=== PATIENT | male | born 1955 | race Caucasian/White ===

== ENCOUNTER → 2016-04-23 | Outpatient (CLI) | payer MEDICAID ==
--- NOTE | 2016-04-23 14:06 | US ---
Complete Abdominal Ultrasound INDICATION: Elevated LFTs. No priors for comparison. TECHNIQUE: Complete abdominal ultrasound is performed. FINDINGS: Pancreas is visualized to a limited extent. Abdominal aorta is within normal limits. Liver measures 13 cm and is diffusely heterogeneous with slightly irregular hepatic borders. No obvious int rinsic hepatic mass. Main portal vein is patent. There are mobile stones in the gallbladder, largest one seen at 1 x 0.6 c m. The gallbladder wall is 2 mm. Common duct is 4 mm. Sonographic Villegas sign is negative. No pericho lecystic fluid. The right kidney measures 11.6 x 5.4 x 5.6 cm. The left kidney measures 11.4 x 5.5 x 6.1 cm. Both are sonographically normal with normal cortices. No hydronephrosis. No solid or cystic mass. Spleen is normal 11.2 cm. No ascites or pleural effusion. IMPRESSION: Coarse and heterogeneous liver with irregular edge suggestive of cirrhosis. Otherwise nor mal complete abdominal ultrasound.
== END ==
LOC: FIMAGING 07:59
PROVIDERS: ATTEND Internal Medicine Hematology & Oncology
DX: R94.5 Abnormal results of liver function studies (principal)

== ENCOUNTER → 2017-06-10 | Outpatient (CLI) | payer MEDICAID ==
[~2017-06-10] MED LIST: IOPAMIDOL (ISOVUE-300) 100 ML BTL ONE
== END ==
LOC: FIMAGING 12:43
PROVIDERS: ATTEND Family Medicine
DX: R59.9 Enlarged lymph nodes, unspecified (principal); J39.2 Other diseases of pharynx; I65.29 Occlusion and stenosis of unspecified carotid artery
CPT/HCPCS: Q9967

== ENCOUNTER 2017-07-21 05:29 | Day surgery (SDC) | payer MEDICAID ==
[2017-07-21] MEDS ORDERED: LIDOCAINE 1% 2 ML INJ ID PRN (05:52)
[2017-07-21] MEDS ORDERED: LR 1,000 ML IV ONE (05:52)
--- NOTE | 2017-07-21 06:23 | PDANEPAE ---
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 ANE Past Medical History - Cardiovascular History Hx Hypertension: Yes Hx Arrhythmias: No Hx Chest Pain: No Hx Coronary Artery / Peripheral Vascular Disease: No Hx CHF / Valvular Disease: No Hx Palpitations: No Cardiovascular History Comment: hypercholesterolemia - Pulmonary History Hx COPD: No Hx Asthma/Reactive Airway Disease: No Hx Recent Upper Respiratory Infection: No Hx Oxygen in Use at Home: No Hx Sleep Apnea: No Sleep Apnea Screening Result - Last Documented: Positive - Neurologic History Hx Cerebrovascular Accident: No Hx Seizures: No Hx Dementia: No - Endocrine History Hx Diabetes: No Hypothyroid: No Obesity: no - Renal History Hx Renal Disorders: No - Liver History Hx Hepatic Disorders: No - Neurological & Psychiatric Hx Hx Neurological and Psychiatric Disorders: No - Cancer History Hx Cancer: Yes Cancer History Comment: oropharyngeal cancer, invasive - Congenital Disorder History Hx Congenital Disorders: No - GI History GERD: no Hx Gastrointestinal Disorders: No Gastrointestinal History Comment: anticipating feeding issues during chemo, so will place PEG today - Other Health History Other Health History: none - Chronic Pain History Chronic Pain: No - Surgical History Prior Surgeries: none ANE Review of Systems Review of Systems: - Exercise capacity METS (RN): 4 METS - Systems EENMT: Reports: nose congestion (chronic AM post nasal drip - pt states this usually clears with morning hot shower) Hematologic/Lymphatic: Reports: other (chronic thrombocytopenia - no easy bruising or gum bleeding) ANE Patient History - Allergies Allergies/Adverse Reactions: No Known Allergies Allergy (Verified 07/20/17 17:18) - Home Medications Home Medications: Amlodipine Besylate 07/20/17 [Last Taken 07/20/17 12:00] Aspirin 81mg (*) 07/20/17 [Last Taken 07/20/17 12:00] Atorvastatin Calcium 07/20/17 [Last Taken 07/20/17 12:00] Lisinopril 07/20/17 [Last Taken 07/20/17 12:00] Metoprolol Succinate 07/20/17 [Last Taken 07/20/17 12:00] Multivitamins 07/20/17 [Last Taken 07/20/17 12:00] - NPO status NPO Since - Liquids (Date): 07/20/17 NPO Since - Liquids (Time): 22:30 NPO Since - Solids (Date): 07/20/17 NPO Since - Solids (Time): 22:00 - Anes Hx Hx Anesthesia Complications (with details): pt has never had anesthesia before - Smoking Hx Smoking Status: Former smoker - Alcohol Use Alcohol Use: Other (h/o alcoholism by medical record, pt states currently about 6 drinks/week) - Family Anes Hx Family Anes Hx: neg - N/A Family Hx Anesthesia Complications: none ANE Labs/Vital Signs - Labs - CBC Platelet Count: 95 - Labs - BMP Sodium: 144 Potassium: 4.5 Creatinine: 0.5 - Vital Signs Blood Pressure: 122/77 Heart Rate: 73 Respiratory Rate: 18 O2 Sat (%): 95 Height: 177.8 cm Weight: 83.915 kg ANE Physical Exam - Airway Neck exam: FROM Mallampati Score: Class 3 Mouth exam: poor dentition - Pulmonary Pulmonary: expiratory wheeze, rhonchi - Cardiovascular Cardiovascular: regular rate and rhythym - ASA Status ASA Status: III ANE Anesthesia Plan Anesthesia Plan: GA w LMA
[2017-07-21] MEDS ORDERED: MIDAZOLAM 2 MG/2 ML VIAL IVP ONE (06:52)
[2017-07-21] MEDS ORDERED: ceFAZolin 2 GM/SWFI 2 GM/20 ML SYR IVP ONE (06:53)
[2017-07-21] MEDS ORDERED: IPRATROPIUM/ALBUTEROL 3 ML DEYVIAL IH ONE (06:53)
--- NOTE | 2017-07-21 07:00 | PDGENHP ---
History and Physical - Chief Complaint oropharyngeal cancer - History of Present Illness Silvano is a 62yoM with probably ENT cancer who was referred by Dr Rosario for consult for port placement and gastrostomy tube placement. Silvano first noticed a left neck mass [address] of the neck with IV contrast does not show any focal mass but does reveal left cervical adenopathy, consistent with metastases. The lymph node was biopsied, and the results are pending. A tonsilar biopsy was attempted but was unsuccessful. He chewed tobacco in high school and started smoking in college. He still smokes 4-5 cigarettes a day. History Information - Allergies/Home Medication List Allergies/Adverse Reactions: No Known Allergies Allergy (Verified 07/20/17 17:18) Home Medications: Amlodipine Besylate 07/20/17 [Last Taken 07/20/17 12:00] Aspirin 81mg (*) 07/20/17 [Last Taken 07/20/17 12:00] Atorvastatin Calcium 07/20/17 [Last Taken 07/20/17 12:00] Lisinopril 07/20/17 [Last Taken 07/20/17 12:00] Metoprolol Succinate 07/20/17 [Last Taken 07/20/17 12:00] Multivitamins 07/20/17 [Last Taken 07/20/17 12:00] I have personally reviewed and updated: medical history, social history, surgical history - Past Medical History hypertension, hyperlipidemia - Surgical History Reports: no pertinent surgical hx - Social History Smoking Status: Former smoker Alcohol Use: Other (h/o alcoholism by medical record, pt states currently about 6 drinks/week) Review of Systems Review of Systems: ROS: 10pt was reviewed & negative except for what was stated in HPI & below Physical Exam Physical Exam: General: Pleasant, well-nourished and well-groomed Eyes: Pupils equal and round, no scleral icterus HENT: Normocephalic, no gross hearing deficits, moist mucous membranes. Left cervical lymphadenopathy. Respiratory: Clear to auscultation bilaterally, no increased work of breathing Cardiac: Regular rate, regular rhythm, no peripheral edema Abdomen: Soft, non-tender, bowel sounds present. Musculoskeletal: Normal gait and normal nails Integumentary: Skin warm and dry rash on abdomen Neurologic: Awake, alert, motor grossly intact Pscyhiatric: Normal mood and affect Temp Pulse Resp BP Pulse Ox 37.4 C 73 18 122/77 H 95 07/21/17 06:32 07/21/17 06:55 07/21/17 06:55 07/21/17 06:55 07/21/17 06:55 Assessment & Plan Assessment: oropharyngeal cancer PEG/Port risks and benefits discussed
[2017-07-21] MEDS ORDERED: BUPIVACAINE 0.5% 30 ML SDV ONE (07:09)
[2017-07-21] MEDS ORDERED: fentaNYL 100 MCG/2 ML INJ ONE ×2 (07:10)
[2017-07-21] MEDS ORDERED: DEXAMETHASONE 4 MG/ML VIAL ONE (07:10)
[2017-07-21] MEDS ORDERED: PROPOFOL/EMULSION 500 MG/50 ML BOTTLE IV ONE (07:10)
[2017-07-21] MEDS ORDERED: LIDOCAINE 2% 5 ML SDV ONE (07:10)
[2017-07-21] MEDS ORDERED: epHEDrine SULFATE 10 MG/ML SYR ONE (07:57)
[2017-07-21] MEDS ORDERED: KETOROLAC 30 MG/1 ML SDV ONE (08:13)
--- NOTE | 2017-07-21 08:22 | POSTOPPROG ---
Post Op Note Date of Operation: 07/21/17 Surgeon: Madhavi Galvan Anesthesiologist: luis Anesthesia: GET(General Endotracheal) Pre-op Diagnosis: oropharyngeal cancer Post-op Diagnosis: same Indication: 62 yo with oropharyngeal cancer Procedure: PORT and PEG Findings: Tip at SVC Inf/Abcess present in the surg proc area at time of surgery?: No Depth: Superfical (Skin SQ) EBL: Minimal Specimen(s): none
[2017-07-21] MEDS ORDERED: ALBUTEROL 3 ML DEYVIAL IH PRN (08:37)
[2017-07-21] MEDS ORDERED: fentaNYL 100 MCG/2 ML INJ IVP PRN (08:37)
[2017-07-21] MEDS ORDERED: ACETAMINOPHEN 500 MG TAB PO PRN (08:37)
[2017-07-21] MEDS ORDERED: LR 500 ML IV PRN (08:37)
[2017-07-21] MEDS ORDERED: HYDROCODONE/APAP 5/325 TAB PO PRN (08:37)
[2017-07-21] MEDS ORDERED: ONDANSETRON 4 MG/2 ML VIAL IVP PRN (08:37)
[2017-07-21] MEDS ORDERED: NALOXONE HCL 0.4 MG/ML INJ IVP PRN (08:37)
[2017-07-21] MEDS ORDERED: DIAZEPAM 5 MG/ML 1 ML SYR IVP PRN (08:37)
--- NOTE | 2017-07-21 08:39 | POSTANESTH ---
Post Anesthetic Evaluation Cardiovascular Status: Normal, Stable Respiratory Status: Normal, Stable Level of Consciousness/Mental Status: Can Participate in Eval, Mildly Sleepy, Arousable Pain Control: Adequate, Prn Tx Ordered Nausea/Vomiting Control: Adequate, Prn Tx Ordered Complications Possibly Related to Anesthesia: None Noted
[2017-07-21 11:46] VITALS: BP 143/93
--- NOTE | 2017-07-21 14:06 | GOP ---
[f rep st] OPERATIVE REPORT DATE OF OPERATION: 07/21/2017 SURGEON: Bossman Thurman MD CO-SURGEON: Madhavi Galvan MD ANESTHESIA: General endotracheal. ANESTHESIOLOGIST: Kristin Castillo MD. PREOPERATIVE DIAGNOSIS: Oropharyngeal cancer. POSTOPERATIVE DIAGNOSIS: Oropharyngeal cancer. PROCEDURE PERFORMED: Upper endoscopy for percutaneous endoscopic gastrostomy tube placement. FINDINGS: Successful upper endoscopy and good placement of PEG tube. SPECIMENS: None. ESTIMATED BLOOD LOSS: 5 cc. DESCRIPTION OF PROCEDURE: Patient was greeted in the preoperative suite. Risks , benefits, alternatives were discussed. He was then brought back to the operative suite, placed on the OR table in supine position. After all anesthesia machines including SCDs were on and functioning, [facility] time-out was performed. After successful induction of general anesthesia, the patient's abdomen was prepped and draped in typical sterile fashion. Please see separate dictation per Dr. Galvan for the abdominal portion of this procedure. I successfully inserted the endoscope via the patient's mouth, navigated past his oropharyngeal cancer through the esophagus and entered the stomach. I gently insufflated the stomach and identified the area of palpation transillumination, given the scope was poor. We successfully inserted the needle and subsequent guidewire into the patient's stomach without issue. The guidewire was then successfully brought out through the patient's mouth via a snare. It was attached to the PEG tube, which was then brought back through the patient's oropharynx and successfully tunneled through the patient's abdominal wall. I then repeated my upper endoscopy, which showed adequate placement of the patient's PEG tube within the stomach. A picture of this was taken and provided on the patient's chart. The endoscope was then withdrawn after suctioning all of the air out of the patient's stomach and esophagus. The procedure was then handed over to Dr. Galvan for the remainder. DRAINS: None. /[id number]/MODL MTDD
== END 2017-07-21 11:35 | disposition home or self-care (01) ==
LOC: FSGY 05:29
PROVIDERS: ATTEND Surgery
PROC: 0JH60XZ Insertion of Tunneled Vascular Access Device into Chest Subcutaneous Tissue and Fascia, Open Approach (ICD-10-PCS; principal; 2017-07-21 07:15)
PROC: 05HM33Z Insertion of Infusion Device into Right Internal Jugular Vein, Percutaneous Approach (ICD-10-PCS; principal; 2017-07-21 07:15)
PROC: 0DH63UZ Insertion of Feeding Device into Stomach, Percutaneous Approach (ICD-10-PCS; 2017-07-21 07:15)
DX: C10.9 Malignant neoplasm of oropharynx, unspecified (principal); F17.210 Nicotine dependence, cigarettes, uncomplicated; I10 Essential (primary) hypertension; E78.5 Hyperlipidemia, unspecified
CPT/HCPCS: 36561; 43246; 71045; 76001; B4087; C1788; J0690; J1100; J1642; J1885; J2250; J2704; J3010

== ENCOUNTER 2017-09-23 10:38 | Inpatient (IN) | payer MEDICAID ==
--- NOTE | 2017-09-23 12:25 | EDPHY ---
General - History Smoking Status: Current some day smoker Time Seen by Provider: 09/23/17 12:18 Narrative: CHIEF COMPLAINT: Abscess HISTORY OF PRESENT ILLNESS: Patient presents with complaints of abscess. He states this started on Tuesday morning. He thought it was similar to a previous episode when "I had 1 like this that popped on its own and went away,"which occurred several years ago. He says this has been steadily increasing size and is very painful. He thought he had some constipation, thus he took some stool softeners. He has had no blood in the stool. He has had no drainage from the abscess and has not attempted to do so. No painful urination. No nausea or vomiting. No chest pain shortness of breath NPO as of yesterday afternoon of all liquids and solids REVIEW OF SYSTEMS: Ten systems reviewed and are negative unless otherwise noted in the HPI PCP: Dr. Charlene Mendoza SPECIALISTS: Dr. Rosario PAST MEDICAL HISTORY: "tonsil and lymph node cancer" 2018. Chemotherapy in today days ago. Radiation therapy and did 15 days ago PAST SURGICAL HISTORY: No recent surgeries FAMILY HISTORY: Noncontributory EXAMINATION General Appearance: Alert, no distress. Appears ill but nontoxic Head: normocephalic, atraumatic Eyes: Pupils equal and round, no conjunctival pallor or injection ENT, Mouth: Mucous membranes dry. Airway patent Neck: Normal inspection, supple, non-tender Respiratory: Lungs are clear to auscultation Cardiovascular: Tachycardic rate. Regular rhythm. No murmur. Gastrointestinal: Abdomen is soft and nondistended. No tympany rigidity. Rectal: There is a palpable fluctuance and long linear line of abscess starting just anterior to the anal verge, tracking anteriorly to the leticia scrotal region. There is no crepitus or fluctuance. No gangrene. Digital rectal exam not performed due to severe pain. Neurological: A&O, nonfocal, normal gait Skin: Warm and dry. Extensive area of cellulitis to the leticia anal region, extending to a candidal dermatitis of the crura of both inguinal fold. Extremities: Nontender, no pedal edema Psychiatric: Mood and affect normal DIFFERENTIAL DIAGNOSES: Including but not limited to perianal abscess, perirectal abscess, karely's gangrene, cellulitis, abscess, sepsis MDM: 12:20 p.m. Suspected perianal versus perirectal abscess that is anterior to the transverse line. He also has some surrounding cellulitis and dermatitis of the inguinal fold. I do not appreciate any obvious evidence of gangrene or Karely's gangrene. The patient does meet SIRS criteria, thus blood cultures been obtained and lactic acid is currently being obtained. He is awake alert no acute distress. 12:35 p.m. Initial lactic acid is elevated 2.4. His white count is elevated 11.48, thus he does meet criteria for sepsis and we will hydrate appropriately. 12:40 p.m. Case discussed with the circulating RN with Dr. Thurman. We discussed the patient's history, exam. He will provide consultation emergency department shortly but is currently scrubbed into another case. I have ordered CT scan for better visualization of the area and due to possibility of perianal or perirectal abscess. 1:40 p.m. Notified by radiologist Dr. Monk. CT scan findings were discussed included perianal abscess, incidental note of ascending colon pneumatosis, cirrhosis. 1:[address] Thurman has evaluated the patient emergency department. He plans for surgical intervention of a large perianal abscess. He request medicine admit. Hospitalist has been paged. At this point he does meet criteria for severe sepsis but not septic shock. We are treating with MALIHA Michaels request of Dr. Thurman. The OR has been activated, and RN is currently providing report to the OR nurse. 2:30 p.m. Case discussed with hospitalist Dr. Jones. She will admit the patient to her service. I informed her of the severe sepsis without septic shock, source of infection and plan for immediate operative intervention. Repeat lactic acid will be obtained before the patient leaves this emergency department. 2:55 p.m. Repeat lactic acid is 2.3. The patient be taken to the OR shortly SUPERVISION: Patient was evaluated in conjunction with Dr. Zarco. We have both examined and evaluated the patient. (Konstantin Doll) - Diagnostics Imaging Results: Imaging Impressions Abdomen CT 09/23/17 12:36 Impression: 1. Perianal abscess containing fluid and gas. No extension into the peritoneal space. 2. Partially withdrawn gastrostomy tube balloon superficial to the rectus muscle in the mature tract. 3. Benign pneumatosis ascending colon. No pneumoperitoneum or acute intra- abdominal process. 4. Cirrhosis. No evidence of hepatoma. 5. Portal venous hypertension and splenomegaly. Patent portal vein. No ascites. 6. Cholelithiasis. Findings discussed with Emergency Department physician circulation assistant, Konstantin Doll PA-C on September 23, 2017 at 1345 hours. Chest X-Ray 09/23/17 12:57 Impression: Clear lungs. No pneumonia or effusion. Discussion: This patient was seen and examined by me. He presents with a perianal abscess that extends anteriorly to the scrotum. He is nontoxic-appearing, Cardiovascular regular tachycardia, chest is clear to auscultation. Rectal exam reveals a perianal abscess. He meets SIRS criteria. Initial lactate is 2.4. IV normal saline per the sepsis protocol initiated. Repeat lactate 2.3. Zosyn IV ordered. Seen by Dr. Thurman in ED, going directly to OR. (Lili Zarco) - Objective Vital Signs: Initial Vital Signs Temperature (C) 98.8 F 09/23/17 10:43 Heart Rate 142 H 09/23/17 10:43 Respiratory Rate 20 09/23/17 10:43 Blood Pressure 131/82 H 09/23/17 10:43 O2 Sat (%) 98 09/23/17 10:43 O2 Delivery Mode Nasal Cannula O2 (L/minute) 2 Allergies/Adverse Reactions: No Known Allergies Allergy (Verified 09/23/17 10:42) Home Medications: Medication Instructions Recorded NK [No Known Home Meds] 09/23/17 Laboratory Results: Laboratory Results 09/23/17 11:00 09/23/17 11:00 09/23/17 09/23/17 09/23/17 14:03 12:33 11:00 WBC RBC Hgb Hct MCV MCH MCHC RDW Plt Count MPV Neut % (Auto) Lymph % (Auto) [place] % (Auto) Eos % (Auto) Baso % (Auto) Nucleat RBC Rel Count Absolute Neuts (auto) Absolute Lymphs (auto) Absolute Monos (auto) Absolute Eos (auto) Absolute Basos (auto) Absolute Nucleated RBC Immature Gran % Immature Gran # Platelet Estimate Polychromasia Oval Macrocytes PT INR APTT VBG Lactic Acid 2.3 mmol/L H mmol/L (0.7-2.1) Sodium 135 mEq/L mEq/L (135-145) Potassium 2.9 mEq/L L mEq/L (3.3-5.0) Chloride 93 mEq/L L mEq/L (97-110) Carbon Dioxide 26 mEq/l mEq/l (22-31) Anion Gap 16 mEq/L mEq/L (8-16) BUN 12 mg/dL mg/dL (7-23) Creatinine 0.5 mg/dL L mg/dL (0.7-1.3) Estimated GFR > 60 Glucose 98 mg/dL mg/dL (70-100) POC Lactic Acid Sundar 2.4 mmol/L H mmol/L (0.7-2.1) Calcium 9.3 mg/dL mg/dL (8.5-10.4) Total Bilirubin 1.9 mg/dL H mg/dL (0.1-1.4) 09/23/17 09/23/17 11:00 11:00 WBC 11.48 10^3/uL H 10^3/uL (3.80-9.50) RBC 3.89 10^6/uL L 10^6/uL (4.40-6.38) Hgb 14.2 g/dL g/dL (13.7-17.5) Hct 41.0 % % (40.0-51.0) MCV 105.4 fL H fL (81.5-99.8) MCH 36.5 pg H pg (27.9-34.1) MCHC 34.6 g/dL g/dL (32.4-36.7) RDW 17.3 % H % (11.5-15.2) Plt Count 121 10^3/uL L 10^3/uL (150-400) MPV 10.4 fL fL (8.7-11.7) Neut % (Auto) 77.2 % H % (39.3-74.2) Lymph % (Auto) 11.1 % L % (15.0-45.0) [place] % (Auto) 10.6 % % (4.5-13.0) Eos % (Auto) 0.5 % L % (0.6-7.6) Baso % (Auto) 0.3 % % (0.3-1.7) Nucleat RBC Rel Count 0.0 % % (0.0-0.2) Absolute Neuts (auto) 8.87 10^3/uL H 10^3/uL (1.70-6.50) Absolute Lymphs (auto) 1.27 10^3/uL 10^3/uL (1.00-3.00) Absolute Monos (auto) 1.22 10^3/uL H 10^3/uL (0.30-0.80) Absolute Eos (auto) 0.06 10^3/uL 10^3/uL (0.03-0.40) Absolute Basos (auto) 0.03 10^3/uL 10^3/uL (0.02-0.10) Absolute Nucleated RBC 0.00 10^3/uL 10^3/uL (0-0.01) Immature Gran % 0.3 % % (0.0-1.1) Immature Gran # 0.03 10^3/uL 10^3/uL (0.00-0.10) Platelet Estimate DECREASED L (ADEQ) Polychromasia 1+ H Oval Macrocytes 1+ H PT 14.9 SEC SEC (12.0-15.0) INR 1.15 (0.83-1.16) APTT 27.8 SEC SEC (23.0-38.0) VBG Lactic Acid Sodium Potassium Chloride Carbon Dioxide Anion Gap BUN Creatinine Estimated GFR Glucose POC Lactic Acid Sundar Calcium Total Bilirubin Medications Given: Discontinued Medications Fentanyl (Sublimaze) 100 mcg IVP EDNOW ONE Stop: 09/23/17 12:42 Last Admin: 09/23/17 13:46 Dose: 50 mcg Sodium Chloride (Ns) 1,000 mls @ 0 mls/hr IV EDNOW ONE; Wide Open PRN Reason: Protocol Stop: 09/23/17 12:37 Last Admin: 09/23/17 13:33 Dose: 1,000 mls Sodium Chloride (Ns) 500 mls @ 0 mls/hr IV EDNOW ONE; Wide Open PRN Reason: Protocol Stop: 09/23/17 12:47 Last Admin: 09/23/17 13:34 Dose: 500 mls Sodium Chloride (Ns) 2,500 mls @ 5,000 mls/hr 30 ml/kg infuse over 30 min ( 2500 ml) IV EDNOW ONE PRN Reason: Protocol Stop: 09/23/17 14:08 Last Admin: 09/23/17 14:01 Dose: Not Given Ondansetron HCl (Zofran) 4 mg IVP EDNOW ONE Stop: 09/23/17 12:42 Last Admin: 09/23/17 13:35 Dose: Not Given Point of Care Test Results: Blood Gas/Lactic Acid-Venous 09/23/17 12:33 POC Lactic Acid Sundar 2.4 mmol/L H mmol/L (0.7-2.1) Departure - Departure Disposition: [facility] Inpatient Acute Clinical Impression: Severe sepsis, Perianal abscess Condition: Fair Referrals: Charlene Mendoza DO [Primary Care Provider] - As per Instructions
--- NOTE | 2017-09-23 12:29 | CPEKG ---
Heart Rate: 125 RR Interval: 480 P-R Interval: 140 QRSD Interval: 98 QT Interval: 332 QTC Interval: 479 P [place]: 63 QRS [place]: -63 T Wave [place]: 98 EKG Severity - ABNORMAL ECG - EKG Impression: SINUS TACHYCARDIA EKG Impression: LEFT ANTERIOR FASCICULAR BLOCK EKG Impression: NONSPECIFIC T ABNORMALITIES, LATERAL LEADS EKG Impression: BORDERLINE PROLONGED QT INTERVAL Electronically Signed By: Lili Zarco 23-Sep-2017 14:26:33
[2017-09-23 12:34] LABS: PLATELET COUNT 121 10^3/uL (150-400)
[2017-09-23] MEDS ORDERED: NS 1,000 ML IV ONE (12:36)
[2017-09-23 12:39] LABS: INR 1.15 (0.83-1.16); PROTIME(PATIENT) 14.9 SEC (12.0-15.0)
[2017-09-23] MEDS ORDERED: IOPAMIDOL (ISOVUE-300) 100 ML BTL ONE (12:41)
[2017-09-23] MEDS ORDERED: ONDANSETRON 4 MG/2 ML VIAL IVP ONE (12:41)
[2017-09-23] MEDS ORDERED: fentaNYL 100 MCG/2 ML INJ IVP ONE (12:41)
[2017-09-23] MEDS ORDERED: NS 500 ML IV ONE (12:46)
[2017-09-23] MEDS ORDERED: NS 2,500 ML IV ONE (13:39)
[2017-09-23] MEDS ORDERED: PIPERACILLIN/TAZO 4.5 GM/DEX 100 ML IV ONE (13:53)
[2017-09-23] MEDS ORDERED: POTASSIUM Cl (KCl) 50 ML IV ONE (14:00)
[2017-09-23] MEDS ORDERED: fentaNYL 250 MCG/5 ML INJ ONE (14:21)
[2017-09-23] MEDS ORDERED: PROPOFOL 200 MG/20 ML VIAL ONE (14:22)
[2017-09-23] MEDS ORDERED: SUCCINYLCHOLINE CHLORIDE 200 MG/10 ML SYR IVP ONE (14:24)
[2017-09-23] MEDS ORDERED: LIDOCAINE 2% 5 ML SDV ONE (14:25)
[2017-09-23] MEDS ORDERED: BUPIVACAINE/EPI 0.5% 30 ML SDV ONE (14:32)
[2017-09-23] MEDS ORDERED: LR 1,000 ML IV ONE (14:36)
[2017-09-23] MEDS ORDERED: MIDAZOLAM 2 MG/2 ML VIAL IVP ONE (14:37)
--- NOTE | 2017-09-23 14:37 | PDANEPAE ---
ANE History of Present Illness perirectal abscess ANE Past Medical History - Cardiovascular History Hx Hypertension: Yes Hx Arrhythmias: No Hx Chest Pain: No Hx Coronary Artery / Peripheral Vascular Disease: No Hx CHF / Valvular Disease: No Hx Palpitations: No Cardiovascular History Comment: hypercholesterolemia - Pulmonary History Hx COPD: No Hx Asthma/Reactive Airway Disease: No Hx Recent Upper Respiratory Infection: No Hx Oxygen in Use at Home: No Hx Sleep Apnea: No - Neurologic History Hx Cerebrovascular Accident: No Hx Seizures: No Hx Dementia: No - Endocrine History Hx Diabetes: No Obesity: no - Renal History Hx Renal Disorders: No - Liver History Hx Hepatic Disorders: No - Neurological & Psychiatric Hx Hx Neurological and Psychiatric Disorders: No - Cancer History Hx Cancer: Yes Cancer History Comment: oropharyngeal cancer, invasive - Congenital Disorder History Hx Congenital Disorders: No - GI History Hx Gastrointestinal Disorders: No Gastrointestinal History Comment: anticipating feeding issues during chemo, so will place PEG today - Other Health History Other Health History: none - Chronic Pain History Chronic Pain: No - Surgical History Prior Surgeries: none ANE Review of Systems Review of systems is: negative Review of Systems: - Exercise capacity Exercise capacity: >=4 METS ANE Patient History - Allergies Allergies/Adverse Reactions: No Known Allergies Allergy (Verified 09/23/17 10:42) - Home Medications Home medications: home medication list seen and reviewed Home Medications: NK [No Known Home Meds] 09/23/17 [Last Taken Unknown] - NPO status NPO Since - Liquids (Date): 09/22/17 NPO Since - Liquids (Time): 12:00 NPO Since - Solids (Date): 09/22/17 NPO Since - Solids (Time): 14:31 - Anes Hx Anes Hx: no prior problems - Smoking Hx Smoking Status: Current some day smoker - Family Anes Hx Family Hx Anesthesia Complications: none ANE Labs/Vital Signs - Labs Result Diagrams: 09/23/17 11:00 09/23/17 11:00 - Vital Signs Blood Pressure: 127/88 Heart Rate: 122 Respiratory Rate: 20 O2 Sat (%): 98 Height: 177.8 cm Weight: 83.915 kg ANE Physical Exam - Airway Neck exam: FROM Mallampati Score: Class 2 Mouth exam: normal dental/mouth exam - Pulmonary Pulmonary: no respiratory distress - Cardiovascular Cardiovascular: regular rate and rhythym - ASA Status ASA Status: III, E ANE Anesthesia Plan Anesthesia Plan: general endotracheal anesthesia Specialized Airway: video laryngoscope
--- NOTE | 2017-09-23 14:40 | PDGENHP ---
History and Physical - Chief Complaint perineal pain - History of Present Illness 62yo M presents with 3 day Hx of perineal pain. Pain has worsened throuhgout that time. Describes a persistent sharp sensation in perineal area which is worse with activity. Denies fevers and chills. Had previous episode 4 years ago which spont drained. 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 Still TF dependent. History Information - Allergies/Home Medication List Allergies/Adverse Reactions: No Known Allergies Allergy (Verified 09/23/17 10:42) Home Medications: NK [No Known Home Meds] 09/23/17 [Last Taken Unknown] I have personally reviewed and updated: family history, medical history, social history, surgical history Past Medical History: tonsillar Ca, HTN - Past Medical History hypertension, hyperlipidemia - Surgical History Reports: no pertinent surgical hx Additional surgical history: port and PEG per [facility] - Family History Positive for: non-pertinent - Social History Smoking Status: Current some day smoker Alcohol Use: Other (occasional, used to be heavy drinker) Review of Systems Review of Systems: ROS: 10pt was reviewed & negative except for what was stated in HPI & below Physical Exam Physical Exam: Temp Pulse Resp BP Pulse Ox 36.9 C 122 H 20 127/88 H 98 09/23/17 14:03 09/23/17 14:03 09/23/17 14:03 09/23/17 14:03 09/23/17 14:03 O2 (L/minute) 2 Constitutional: no apparent distress, appears nourished, not in pain Eyes: PERRL, anicteric sclera, EOMI Ears, Nose, Mouth, Throat: moist mucous membranes, hearing normal, ears appear normal, no oral mucosal ulcers Cardiovascular: no murmur, rub, or gallop, other (tachycardic), No edema Respiratory: no respiratory distress, no rales or rhonchi, clear to auscultation Gastrointestinal: normoactive bowel sounds, soft, non-tender abdomen, no palpable masses, other (inflamed perineal area, very tender and fluctuant ) Genitourinary: no bladder fullness, no bladder tenderness Skin: warm, normal color, no rashes or abrasions, no fluctuance, no induration, No mottled Musculoskeletal: full muscle strength, no muscle tenderness, normal joint ROM, no joint effusions Psychiatric: interacting appropriately, not anxious, not encephalopathic, thought process linear Lymph, Heme, Immunologic: no cervical LAD, no supraclavicular LAD Lab Data & Imaging Review 09/23/17 11:00 09/23/17 11:00 WBC 11.48 10^3/uL (3.80-9.50) H 09/23/17 11:00 RBC 3.89 10^6/uL (4.40-6.38) L 09/23/17 11:00 Hgb 14.2 g/dL (13.7-17.5) 09/23/17 11:00 Hct 41.0 % (40.0-51.0) 09/23/17 11:00 MCV 105.4 fL (81.5-99.8) H 09/23/17 11:00 MCH 36.5 pg (27.9-34.1) H 09/23/17 11:00 MCHC 34.6 g/dL (32.4-36.7) 09/23/17 11:00 RDW 17.3 % (11.5-15.2) H 09/23/17 11:00 Plt Count 121 10^3/uL (150-400) L 09/23/17 11:00 MPV 10.4 fL (8.7-11.7) 09/23/17 11:00 Neut % (Auto) 77.2 % (39.3-74.2) H 09/23/17 11:00 Lymph % (Auto) 11.1 % (15.0-45.0) L 09/23/17 11:00 [place] % (Auto) 10.6 % (4.5-13.0) 09/23/17 11:00 Eos % (Auto) 0.5 % (0.6-7.6) L 09/23/17 11:00 Baso % (Auto) 0.3 % (0.3-1.7) 09/23/17 11:00 Nucleat RBC Rel Count 0.0 % (0.0-0.2) 09/23/17 11:00 Absolute Neuts (auto) 8.87 10^3/uL (1.70-6.50) H 09/23/17 11:00 Absolute Lymphs (auto) 1.27 10^3/uL (1.00-3.00) 09/23/17 11:00 Absolute Monos (auto) 1.22 10^3/uL (0.30-0.80) H 09/23/17 11:00 Absolute Eos (auto) 0.06 10^3/uL (0.03-0.40) 09/23/17 11:00 Absolute Basos (auto) 0.03 10^3/uL (0.02-0.10) 09/23/17 11:00 Absolute Nucleated RBC 0.00 10^3/uL (0-0.01) 09/23/17 11:00 Immature Gran % 0.3 % (0.0-1.1) 09/23/17 11:00 Immature Gran # 0.03 10^3/uL (0.00-0.10) 09/23/17 11:00 Platelet Estimate DECREASED (ADEQ) L 09/23/17 11:00 Polychromasia 1+ H 09/23/17 11:00 Oval Macrocytes 1+ H 09/23/17 11:00 PT 14.9 SEC (12.0-15.0) 09/23/17 11:00 INR 1.15 (0.83-1.16) 09/23/17 11:00 APTT 27.8 SEC (23.0-38.0) 09/23/17 11:00 VBG Lactic Acid 2.3 mmol/L (0.7-2.1) H 09/23/17 14:03 Sodium 135 mEq/L (135-145) 09/23/17 11:00 Potassium 2.9 mEq/L (3.3-5.0) L 09/23/17 11:00 Chloride 93 mEq/L (97-110) L 09/23/17 11:00 Carbon Dioxide 26 mEq/l (22-31) 09/23/17 11:00 Anion Gap 16 mEq/L (8-16) 09/23/17 11:00 BUN 12 mg/dL (7-23) 09/23/17 11:00 Creatinine 0.5 mg/dL (0.7-1.3) L 09/23/17 11:00 Estimated GFR > 60 09/23/17 11:00 Glucose 98 mg/dL (70-100) 09/23/17 11:00 POC Lactic Acid Sundar 2.4 mmol/L (0.7-2.1) H 09/23/17 12:33 Calcium 9.3 mg/dL (8.5-10.4) 09/23/17 11:00 Total Bilirubin 1.9 mg/dL (0.1-1.4) H 09/23/17 11:00 Visualized and Interpreted imaging results: Yes Interpretation: CT: very large leticia-rectal abscess Assessment & Plan Assessment: Perianal abscess (Acute) Severe sepsis (Acute) Plan: 62yo M c perirectal and sepsis - Iv abx - to OR for drainage - risks, benefits and alternatives discussed
[2017-09-23] MEDS ORDERED: ACETAMINOPHEN 325 MG TAB PO PRN (14:49)
[2017-09-23] MEDS ORDERED: ONDANSETRON DISINTEGRATING 4 MG TAB PO PRN (14:49)
[2017-09-23] MEDS ORDERED: ONDANSETRON 4 MG/2 ML VIAL IVP PRN ×2 (14:49→15:29)
[2017-09-23] MEDS ORDERED: PROTOCOL POTASSIUM 1 DOSE MISC PRN (14:54)
[2017-09-23] MEDS ORDERED: ONDANSETRON 4 MG/2 ML VIAL ONE (15:13)
[2017-09-23] MEDS ORDERED: DEXAMETHASONE 4 MG/ML VIAL ONE (15:13)
[2017-09-23] MEDS ORDERED: ESMOLOL HCL 100 MG/10 ML VIAL IV ONE (15:15)
[2017-09-23] MEDS ORDERED: SUGAMMADEX SODIUM 200 MG/2 ML VIAL IVP ONE (15:28)
[2017-09-23] MEDS ORDERED: NALOXONE HCL 0.4 MG/ML INJ IVP PRN (15:29)
[2017-09-23] MEDS ORDERED: ALBUTEROL 3 ML DEYVIAL IH PRN (15:29)
[2017-09-23] MEDS ORDERED: HYDROmorphONE/DILAUDID 1 MG/ML INJ IVP PRN (15:29)
[2017-09-23] MEDS ORDERED: oxyCODONE IR 5 MG TAB PO PRN (15:29)
[2017-09-23] MEDS ORDERED: fentaNYL 100 MCG/2 ML INJ IVP PRN (15:29)
[2017-09-23] MEDS ORDERED: HYDROCODONE/APAP 5/325 TAB PO PRN (15:29)
[2017-09-23] MEDS ORDERED: ACETAMINOPHEN 500 MG TAB PO PRN (15:29)
[2017-09-23] MEDS ORDERED: LR 500 ML IV PRN (15:29)
[2017-09-23] MEDS ORDERED: PROMETHAZINE HCL 25 MG/ML INJ IVP PRN (15:29)
--- NOTE | 2017-09-23 15:30 | POSTANESTH ---
Post Anesthetic Evaluation Cardiovascular Status: Similar to Pre-Op Cond Respiratory Status: Normal, Stable Level of Consciousness/Mental Status: Can Participate in Eval, Alert and Oriented Pain Control: Adequate, Prn Tx Ordered Nausea/Vomiting Control: Adequate, Prn Tx Ordered Complications Possibly Related to Anesthesia: None Noted
--- NOTE | 2017-09-23 15:43 | POSTOPPROG ---
Post Op Note Date of Operation: 09/23/17 Surgeon: Bossman Thurman Anesthesiologist: [place] Anesthesia: GET(General Endotracheal) Pre-op Diagnosis: Perirectal abscess Post-op Diagnosis: Large perineal abscess Indication: pain Procedure: EUA, incision and drainge of perineal abscess Findings: large 5cm perineal abscess. Handy drain left Inf/Abcess present in the surg proc area at time of surgery?: Yes Depth: Deep Incisional (Fascial) EBL: Minimal Total fluids administered: 1000cc NS wasouht Drains: Handy Specimen(s): fluid taken for culture
--- NOTE | 2017-09-23 15:46 | PDGENHP ---
History and Physical - Chief Complaint leticia-anal pain - History of Present Illness 62 yo male with h/o recently diagnosed tonsillar cancer who is s/p chemo and radiation presents to ED with 2 days of leticia-anal pain. He finished chemotherapy 8 days ago and completed radiation 2 weeks ago. He has a PORT and a g tube previously placed by Dr. Galvan. He had been doing well until 2 days ago when he began to have leticia-anal pain. No fevers/chills, rigors or sweats. No abdominal pain, nausea or vomiting. He denies BRBPR or changes in his bowel habits, though he has had increased pain with BM's. In the ED, he met criteria for severe sepsis. A CT scan revealed a 3x5 cm leticia-anal abscess. Surgery is consulted, blood cultures were drawn, he was given 4.5 mg of IV Zosyn and is taken to the operating room by Dr. Thurman for I&D of abscess. He will be admitted to the stepdown unit post-operatively for further management. History Information - Allergies/Home Medication List Allergies/Adverse Reactions: No Known Allergies Allergy (Verified 09/23/17 10:42) Home Medications: NK [No Known Home Meds] 09/23/17 [Last Taken Unknown] I have personally reviewed and updated: family history, medical history, social history, surgical history Past Medical History: tonsillar Ca, HTN - Past Medical History hypertension, hyperlipidemia Additional medical history: Cirrhotic liver by CT imaging with portal hypertension and splenomegaly, no ascites - Surgical History Additional surgical history: port and PEG per [facility] - Family History Positive for: non-pertinent - Social History Smoking Status: Current some day smoker Alcohol Use: Other (occasional, used to be heavy drinker) Drug Use: None Additional social history: Lives independently Review of Systems Review of Systems: ROS: 10pt was reviewed & negative except for what was stated in HPI & below Physical Exam Physical Exam: Temp Pulse Resp BP Pulse Ox 37.4 C 122 H 20 127/88 H 98 09/23/17 14:26 09/23/17 14:37 09/23/17 14:37 09/23/17 14:37 09/23/17 14:37 Constitutional: no apparent distress Eyes: PERRL Ears, Nose, Mouth, Throat: moist mucous membranes Cardiovascular: regular rate and rhythym, no murmur, rub, or gallop Respiratory: no respiratory distress, clear to auscultation Gastrointestinal: normoactive bowel sounds, soft, non-tender abdomen Skin: warm Musculoskeletal: full muscle strength Neurologic: AAOx3 Psychiatric: interacting appropriately Lab Data & Imaging Review 09/23/17 11:00 09/23/17 11:00 WBC 11.48 10^3/uL (3.80-9.50) H 09/23/17 11:00 RBC 3.89 10^6/uL (4.40-6.38) L 09/23/17 11:00 Hgb 14.2 g/dL (13.7-17.5) 09/23/17 11:00 Hct 41.0 % (40.0-51.0) 09/23/17 11:00 MCV 105.4 fL (81.5-99.8) H 09/23/17 11:00 MCH 36.5 pg (27.9-34.1) H 09/23/17 11:00 MCHC 34.6 g/dL (32.4-36.7) 09/23/17 11:00 RDW 17.3 % (11.5-15.2) H 09/23/17 11:00 Plt Count 121 10^3/uL (150-400) L 09/23/17 11:00 MPV 10.4 fL (8.7-11.7) 09/23/17 11:00 Neut % (Auto) 77.2 % (39.3-74.2) H 09/23/17 11:00 Lymph % (Auto) 11.1 % (15.0-45.0) L 09/23/17 11:00 [place] % (Auto) 10.6 % (4.5-13.0) 09/23/17 11:00 Eos % (Auto) 0.5 % (0.6-7.6) L 09/23/17 11:00 Baso % (Auto) 0.3 % (0.3-1.7) 09/23/17 11:00 Nucleat RBC Rel Count 0.0 % (0.0-0.2) 09/23/17 11:00 Absolute Neuts (auto) 8.87 10^3/uL (1.70-6.50) H 09/23/17 11:00 Absolute Lymphs (auto) 1.27 10^3/uL (1.00-3.00) 09/23/17 11:00 Absolute Monos (auto) 1.22 10^3/uL (0.30-0.80) H 09/23/17 11:00 Absolute Eos (auto) 0.06 10^3/uL (0.03-0.40) 09/23/17 11:00 Absolute Basos (auto) 0.03 10^3/uL (0.02-0.10) 09/23/17 11:00 Absolute Nucleated RBC 0.00 10^3/uL (0-0.01) 09/23/17 11:00 Immature Gran % 0.3 % (0.0-1.1) 09/23/17 11:00 Immature Gran # 0.03 10^3/uL (0.00-0.10) 09/23/17 11:00 Platelet Estimate DECREASED (ADEQ) L 09/23/17 11:00 Polychromasia 1+ H 09/23/17 11:00 Oval Macrocytes 1+ H 09/23/17 11:00 PT 14.9 SEC (12.0-15.0) 09/23/17 11:00 INR 1.15 (0.83-1.16) 09/23/17 11:00 APTT 27.8 SEC (23.0-38.0) 09/23/17 11:00 VBG Lactic Acid 2.3 mmol/L (0.7-2.1) H 09/23/17 14:03 Sodium 135 mEq/L (135-145) 09/23/17 11:00 Potassium 2.9 mEq/L (3.3-5.0) L 09/23/17 11:00 Chloride 93 mEq/L (97-110) L 09/23/17 11:00 Carbon Dioxide 26 mEq/l (22-31) 09/23/17 11:00 Anion Gap 16 mEq/L (8-16) 09/23/17 11:00 BUN 12 mg/dL (7-23) 09/23/17 11:00 Creatinine 0.5 mg/dL (0.7-1.3) L 09/23/17 11:00 Estimated GFR > 60 09/23/17 11:00 Glucose 98 mg/dL (70-100) 09/23/17 11:00 POC Lactic Acid Sundar 2.4 mmol/L (0.7-2.1) H 09/23/17 12:33 Calcium 9.3 mg/dL (8.5-10.4) 09/23/17 11:00 Total Bilirubin 1.9 mg/dL (0.1-1.4) H 09/23/17 11:00 Visualized and Interpreted Chest x-ray results: Yes Chest X-Ray results: no infiltrate Assessment & Plan Assessment: Severe sepsis 2/2 perianal abscess (tachycardia, leukocytosis, elevated lactate bilirubin) - No hypotension, s/p 30 cc/kg NS bolus in ED. BCx's pending. Dr. Thurman taking to OR now for I&D. -will treat with Ceftriaxone, Flagyl, ID to consult in am -trend lactate, follow Cx data -IVF's, supportive care -post-op care per surgery Cirrhotic liver per CT imaging - with e/o portal hypertension and splenomegaly but no ascites - suspect 2/2 etoh given h/o heavy etoh use -no indication for diuretics at this time -outpt f/u with GI recommended H/O alcohol abuse - CIWA protocol in case he develops withdrawal Tonsillar cancer - s/p chemo and radiation, PORT and peg tube present. Followed by Dr. Rosario. H/O hypertension - normotensive on arrival Hypokalemia - check mag, replace per protocol, follow Full code DVT PPLX - Lovenox once 24 hrs post-op Dispo - admit to inpt, anticipate >48 hrs hospitalization for ongoing management of severe sepsis and leticia-rectal abscess.
[2017-09-23] MEDS ORDERED: FLUMAZENIL 0.5 MG/5 ML MDV IVP PRN (15:51)
[2017-09-23] MEDS ORDERED: LORazepam 1 MG TAB PO PRN (15:51)
[2017-09-23] MEDS: POTASSIUM Cl (KCl) 100 ML IV SCH ×2 (17:23→18:10)
[2017-09-23] MEDS ORDERED: PROTOCOL MAGNESIUM 1 DOSE IV PRN (17:56)
[2017-09-23] MEDS ORDERED: MAGNESIUM SULF 2 GM/WATER 50 ML IV ONE (18:01)
[2017-09-23] MEDS ORDERED: PIPERACILLIN/TAZO 4.5 GM/DEX 100 ML IV SCH (21:00)
[2017-09-23] MEDS: CLOTRIMAZOLE 1% 15 GM CRTUBE TP SCH (21:13)
[2017-09-23] MEDS ORDERED: POTASSIUM CL 10 MEQ TAB PO ONE (21:14)
[2017-09-23] MEDS: oxyCODONE IR 5 MG TAB PO PRN (21:32)
[2017-09-24 04:55] LABS: PLATELET COUNT 69 10^3/uL (150-400)
[2017-09-24] MEDS ORDERED: POTASSIUM CL 10 MEQ TAB PO ONE ×2 (07:28→19:20)
[2017-09-24] MEDS ORDERED: MAGNESIUM SULF 1 GM/DEXTROSE 100 ML IV ONE (07:30)
[2017-09-24] MEDS: LORazepam 2 MG/ML INJ IVP PRN ×2 (08:14→13:26)
--- NOTE | 2017-09-24 09:05 | SOAPPROG ---
SOAP Progress Note Assessment/Plan: Assessment: 62yo M s/p I&D of perineal abscess - VSS, HDs - pain is controlled - some drainage from site. Change dressing PRN. Leave edmond in place - Discussed malpositioned PEG with IR. Will re-position today with new tube. Patient amenable to this, dont anticipate he will be TF dependent for much longer but want tube in correct position - Cont abx, await final Cx. Plan: 09/24/17 09:04 Subjective: doing well, pain controlled. Objective: Vital Signs Temp Pulse Resp BP Pulse Ox 36.4 C 100 20 162/92 H 98 09/24/17 07:40 09/24/17 07:40 09/24/17 07:40 09/24/17 07:40 09/24/17 07:40 Microbiology 09/23/17 15:22 Gram Stain - Final Buttock - Eswab Laboratory Results 09/24/17 04:30 09/24/17 04:30 09/23/17 09/24/17 09/25/17 05:59 05:59 05:59 Intake Total 2483 Output Total 935 Balance 1548 PT 14.9 SEC (12.0-15.0) 09/23/17 11:00 INR 1.15 (0.83-1.16) 09/23/17 11:00 ICD10 Worksheet Patient Problems: Problems Problem Status Onset Perianal abscess Acute Severe sepsis Acute
[2017-09-24] MEDS: THIAMINE HCL 500 MG in NS 100 ML IV SCH (09:28)
[2017-09-24] MEDS: PANTOPRAZOLE SODIUM 40 MG VIAL IVP SCH (10:56)
[2017-09-24] MEDS: CLOTRIMAZOLE 1% 15 GM CRTUBE TP SCH ×2 (10:56→20:25)
[2017-09-24] MEDS ORDERED: POTASSIUM Cl (KCl) 50 ML IV ONE (11:01)
--- NOTE | 2017-09-24 11:02 | PDMN ---
Medical Necessity Medical necessity: est los>2mn for severe sepsis r/t perianal abscess w/ tachycardia, leukocytosis, and elevated lactate & bili, cirrhotic liver w/ portal htn & spenomegaly likely r/t high etoh use; admit for IV abx/ Flagyl, I& D abscess, IVF, CIWA,; comorbid tonsillar CA s/p chemo, RT, w/ port and PEG; per order and H&P 09/23/17
--- NOTE | 2017-09-24 12:28 | GCON ---
[f rep st] CONSULTATION INFECTIOUS DISEASE CONSULTATION DATE OF CONSULTATION: 09/24/2017 REFERRING PHYSICIAN: Bossman Thurman MD REASON FOR CONSULTATION: Sepsis due to perineal/perirectal abscess. HPI: A 62-year-old male who was fairly recently diagnosed with tonsillar cancer , stage ESSIE, T3 N2b M0, HPV negative, who is tube feed-dependent via PEG placed 07/22/2017; and receiving radiation and cisplatin starting 07/25/2017; last dose of chemo was September 16; last dose of radiation yesterday, who was in his usual state of health until Tuesday, September 21, when he developed a lump and pain in the perirectal area. This pain became progressive. Therefore, patient presented to the emergency room for further evaluation. In the emergency room, patient was found to be tachycardic and one measurement of hypotension with an elevated lactic acid. CT scan was performed and personally reviewed by me, which showed cirrhosis, gallstones, as well as a 3.5 x 3 cm perianal abscess. Surgery was consulted, and patient went to the OR last night and underwent an I and D of a perineal abscess, which was 5 cm clinically. A [place] drain was left in place. The patient reports significant improvement in pain today. He denies any associated fevers and chills leading up to the diagnosis of this infection. PAST MEDICAL HISTORY: 1. Tonsillar cancer staging and treatment as above. 2. The patient carries a diagnosis of hypertension and hyperlipidemia, but has been off these medicines since starting chemotherapy by report. PAST SURGICAL HISTORY: Port placement and PEG. SOCIAL HISTORY: The patient is a longstanding tobacco user but has not been able to use recently due to side effects related to XRT. He drinks alcohol. Seems to minimize amount. FAMILY HISTORY: Positive for hyperlipidemia, breast cancer, and skin cancer in his mom and skin cancer in his brother. ALLERGIES: NKDA. MEDICATIONS: Ceftriaxone 1 g IV daily and metronidazole 500 mg IV q.8. He is also on clotrimazole, Lovenox, flumazenil p.r.n., hydromorphone, Ativan as needed for alcohol withdrawal, Protonix, thiamine, and potassium supplementation. REVIEW OF SYSTEMS: A complete 10-point review of systems was performed and is negative except as mentioned above or here. He has had some associated weight loss with chemotherapy, 10-15 pounds. He did not notice any dysfunction of his PEG tube. PHYSICAL EXAM: VITAL SIGNS: Blood pressure 162/92, heart rate 100 to 74, respiratory rate 16, saturation 98% on 2-3 L, temperature 36.4. He has been afebrile throughout his hospital course. GENERAL: This is a tremulous male, in no acute distress. HEENT: No conjunctival hemorrhages. Oropharynx moist mucous membranes. Fair dentition. Smooth tongue noted. NECK: Obvious skin changes consistent with radiation and to palpation a toughness that also consistent with radiation changes. CARDIOVASCULAR: Regular rate. No murmurs. CHEST: Clear to auscultation bilaterally. ABDOMEN: Soft, nontender. He had a PEG tube in place. The insertion site was without irritation. He also has a line chest port on the right upper chest, clean, dry, and intact. NEUROLOGIC: He was tremulous. He was appropriate with conversation and moved all 4 extremities equally. SKIN: No rashes other than radiation changes noted above. LABORATORY: White count 11.4, today 4.8, hematocrit 41, platelets 121; today hematocrit 30, platelets 69, white count 4.8 with 93% neutrophils. ANC is 4540. Hep B and C and HIV serologies 03/23/16 are all negative. Blood cultures from admission are pending. OR cultures demonstrate a polymicrobial Gram stain with GPCs in clusters, GPRs, and gram-negative rods, and GPCs in chains. Cultures are pending. ASSESSMENT AND PLAN: This is a 62-year-old male on radiation chemotherapy for tonsillar cancer, who developed a perineal/perianal abscess status post debridement with expected polymicrobial Gram stain. The patient is clinically significantly improved today. Suspect underlying component of alcohol withdrawal. Agree with ceftriaxone and metronidazole for now as we await maturity of cultures. We will have to monitor for cell line changes in light of chemotherapy 1 week ago. At this point, patient is not neutropenic nor febrile. Thank you for this consultation. We will continue to follow patient on a daily basis. Greater than 70 minutes spent on this patients care, greater than 50% of time spent counseling, educating, and coordinating care regarding the above mentioned plan. /[id number]/MODL MTDD
--- NOTE | 2017-09-24 12:30 | HOSPPROG ---
Hospitalist Progress Note Assessment/Plan: #Sunita-rectal abscess: s/p I&D 09/23. Culture pending. Broad coverage with CTX, Flagyl #Tonsillar CA: recent chemo, XRT #Dislodged feeding tube: IR to assist today #Severe sepsis: resolved #Etoh w/d: CIWA #Compensated cirrhosis: seen on CT. Need alcohol cessation #Hypokalemia/hypomagnesium: repleting #Diet: TFs once feeding tube replaced #Disp: cont IV abx, awaiting cultures, CIWA Subjective: mild pain in rectum Objective: Vital Signs Temp Pulse Resp BP Pulse Ox 36.4 C 100 20 162/92 H 98 09/24/17 07:40 09/24/17 07:40 09/24/17 07:40 09/24/17 07:40 09/24/17 07:40 Microbiology 09/23/17 15:22 Gram Stain - Final Buttock - Eswab Laboratory Results 09/24/17 04:30 09/24/17 04:30 09/23/17 09/24/17 09/25/17 05:59 05:59 05:59 Intake Total 2483 Output Total 935 Balance 1548 PT 14.9 SEC (12.0-15.0) 09/23/17 11:00 INR 1.15 (0.83-1.16) 09/23/17 11:00 - Time Spent With Patient Time Spent with Patient: greater than 35 minutes Time Spent with Patient: Greater than 35 minutes spent on this patients care, greater than 50% of time spent counseling, educating, and coordinating care regarding the above mentioned plan. - Physical Exam Constitutional: no apparent distress Eyes: PERRL Ears, Nose, Mouth, Throat: moist mucous membranes Cardiovascular: regular rate and rhythym Respiratory: no respiratory distress, no rales or rhonchi Gastrointestinal: normoactive bowel sounds, other (edmond in rectum with serosang drainage) Skin: warm Musculoskeletal: full muscle strength Neurologic: AAOx3, CN II-XII Intact, other (mild tongue fasiculation, hand tremors) ICD10 Worksheet Patient Problems: Problems Problem Status Onset Severe sepsis Acute Perianal abscess Acute
[2017-09-24] MEDS: NS W/ 20 KCl/L 1,000 ML IV SCH (20:24)
[2017-09-24] MEDS: ENOXAPARIN 40 MG/0.4 ML SYR SC SCH (20:28)
[2017-09-25] MEDS: NS W/ 20 KCl/L 1,000 ML IV SCH ×2 (05:07→18:15)
[2017-09-25 05:30] LABS: PLATELET COUNT 71 10^3/uL (150-400)
--- NOTE | 2017-09-25 08:18 | SOAPPROG ---
SOAP Progress Note Assessment/Plan: Assessment: 62 y/o M s/p perineal abscess I&D POD #2 S: Pt not in room during visit. No new events over night per RN. Plan: PEG tube placement in IR today. Pt NPO currently for procedure, but can eat a regular diet after procedure. 09/25/17 08:16 Objective: Vital Signs Temp Pulse Resp BP Pulse Ox 37.1 C 97 18 101/66 94 09/25/17 07:29 09/25/17 07:29 09/25/17 07:29 09/25/17 07:29 09/25/17 07:29 Microbiology 09/23/17 15:22 Gram Stain - Final Buttock - Eswab Laboratory Results 09/25/17 05:15 09/25/17 05:15 09/24/17 09/25/17 09/26/17 05:59 05:59 05:59 Intake Total 2483 1490 0 Output Total 935 350 300 Balance 1548 1140 -300 PT 14.9 SEC (12.0-15.0) 09/23/17 11:00 INR 1.15 (0.83-1.16) 09/23/17 11:00 ICD10 Worksheet Patient Problems: Problems Problem Status Onset Perianal abscess Acute Severe sepsis Acute
[2017-09-25] MEDS: THIAMINE HCL 500 MG in NS 100 ML IV SCH (08:41)
[2017-09-25] MEDS: HYDROmorphONE/DILAUDID 1 MG/ML INJ IVP PRN ×3 (08:41→18:16)
[2017-09-25] MEDS: PANTOPRAZOLE SODIUM 40 MG VIAL IVP SCH (08:42)
[2017-09-25] MEDS: ENOXAPARIN 40 MG/0.4 ML SYR SC SCH (08:58)
[2017-09-25] MEDS: CLOTRIMAZOLE 1% 15 GM CRTUBE TP SCH ×2 (10:06→22:05)
[2017-09-25] MEDS ORDERED: MAGNESIUM SULF 1 GM/DEXTROSE 100 ML IV ONE (11:07)
[2017-09-25] MEDS ORDERED: POTASSIUM Cl (KCl) 100 ML IV SCH (11:30)
--- NOTE | 2017-09-25 12:23 | PCMIDPN ---
Assessment/Plan: Perianal/perineal abscess s/p drainage, Cx E coli R to levofloxacin . Perineal [place] in place, minimal drainage, no enduration --continue ceftriaxone/flagyl --Can dc on 4 more days Augmentin 875mg PO BID for total 7 days of antibiotics ( dc anytime ok from ID standpoint). --no ID Follow up needed, call ID for additional questions Leukopenia: expected decline in light of chemotherapy approx 1 week ago, ANC 2400 meds ceftriaxone 1gm IV daily#3 flagyl #2 Subjective: awaiting PEG exchange minimal perineal pain remains wants to leave as soon as possible no rashes no diarrhea Objective: Vital Signs Temp Pulse Resp BP Pulse Ox 37.1 C 97 18 101/66 94 09/25/17 07:29 09/25/17 07:29 09/25/17 07:29 09/25/17 07:29 09/25/17 07:29 Microbiology 09/23/17 15:22 Gram Stain - Final Buttock - Eswab Laboratory Results 09/25/17 05:15 09/25/17 05:15 09/24/17 09/25/17 09/26/17 05:59 05:59 05:59 Intake Total 2483 1490 0 Output Total 935 350 550 Balance 1548 1140 -550 - Physical Exam General Appearance: alert, no apparent distress EENT: pale conjunctiva, No scleral icterus Respiratory: No respiratory distress, No accessory muscle use Extremities: No pedal edema Rectal: other (edmond in perineum with minimal discharge, no enduration no fluctuance) Skin: No rash Neuro/Psych: alert, normal mood/affect, oriented x 3, other (less tremulous today) ICD10 Worksheet Patient Problems: Problems Problem Status Onset Perianal abscess Acute Severe sepsis Acute
[2017-09-25] MEDS ORDERED: HYDROmorphONE/DILAUDID 2 MG/ML INJ ONE (13:50)
[2017-09-25] MEDS ORDERED: IOPAMIDOL (ISOVUE-300) 100 ML BTL ONE (15:24)
[2017-09-25] MEDS ORDERED: LIDOCAINE 1% 300 MG/30 ML SDV ONE (15:24)
--- NOTE | 2017-09-25 16:06 | HOSPPROG ---
Hospitalist Progress Note Assessment/Plan: #Sunita-rectal abscess: s/p I&D 09/23. E coli on culture. Change to Augmentin for total 7 days #Tonsillar CA: recent chemo, XRT. Watch for neutropenia #Dislodged feeding tube: IR repositioned today #Severe sepsis: resolved #Etoh w/d: min CIWA needs #Compensated cirrhosis: seen on CT. Need alcohol cessation #Hypokalemia/hypomagnesium: repleting #Diet: TFs once feeding tube replaced #Disp: cont IV abx, awaiting cultures, CIWA. Likely DC in next 1-2 days Subjective: min pain Objective: Vital Signs Temp Pulse Resp BP Pulse Ox 36.7 C 84 18 122/78 H 90 L 09/25/17 15:26 09/25/17 15:26 09/25/17 15:26 09/25/17 15:26 09/25/17 15:26 Microbiology 09/23/17 15:22 Gram Stain - Final Buttock - Eswab Laboratory Results 09/25/17 05:15 09/25/17 05:15 09/24/17 09/25/17 09/26/17 05:59 05:59 05:59 Intake Total 2483 1490 0 Output Total 935 350 550 Balance 1548 1140 -550 PT 14.9 SEC (12.0-15.0) 09/23/17 11:00 INR 1.15 (0.83-1.16) 09/23/17 11:00 - Time Spent With Patient Time Spent with Patient: greater than 25 minutes Time Spent with Patient: Greater than 25 minutes spent on this patients care, greater than 50% of time spent counseling, educating, and coordinating care regarding the above mentioned plan. - Physical Exam Constitutional: no apparent distress Eyes: PERRL Ears, Nose, Mouth, Throat: moist mucous membranes Cardiovascular: regular rate and rhythym Respiratory: no respiratory distress Gastrointestinal: normoactive bowel sounds Genitourinary: other (edmond in perineum, mild drainage. No fluctuance) Neurologic: AAOx3, CN II-XII Intact ICD10 Worksheet Patient Problems: Problems Problem Status Onset Perianal abscess Acute Severe sepsis Acute
--- NOTE | 2017-09-25 16:16 | GCON ---
[f rep st] CONSULTATION ONCOLOGY INITIAL VISIT PRIMARY ONCOLOGIST: Clarisa Rosario MD. REASON FOR VISIT: E and M for head and neck cancer and thrombocytopenia. HISTORY OF PRESENT ILLNESS: The patient is a 62-year-old gentleman whom I have been following since 2016 for thrombocytopenia that I suspected was related to alcohol abuse. He has not had a bone marro w biopsy. He presented in June with swelling in the left side of his neck. CT scan showed enlargem ent, and then he was followed up with Dr. Barbosa, who biopsied the lesion and confirmed that it was h ead and neck cancer. I believe he also biopsied the tonsil, which was thought to be the source. 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 It was P16 negative. He was starte d on radiation July, as well as weekly cisplatin. He received 3 doses last on August, but cisplatin was stopped because he had significant cytopenias that were very slow to recover so I switched him to cetuximab starting August 24, and he received 4 doses. His last was September. R adiation lasted through September for a total of 33 fractions [place] dose [place] 6996 rads. He had typ ical side effects with stomatitis requiring PEG placement and tube feeding nutrition. Over the last couple of weeks, he has been slowly getting better. He developed pain and a lump in his perirectal area on approximately September. It progressively worsened and he presented to the emergency room where he was found to be tachycardic and hypotensive with an elevated lactic acid level. CT scan showed evidence of cirrhosis on the liver and gallstone s, but also a 3.5 x 3 cm perianal abscess. He was seen by Surgery and was taken to the operating arjun m I believe Tuesday night and had an I and D, which was clinically 5 cm. Elwood drain was left in pl orlin. He was started on antibiotics. He has been seen by Infectious Disease. He was feeling much be tter and hopefully was being converted over to oral antibiotics and be able to go home soon. ALLERGIES: He has no known drug allergies. HOME MEDICATIONS: Really were none. PAST MEDICAL HISTORY: Chronic illnesses include high blood pressure, although he has been able to co me off blood pressure medications since being treated with chemo and radiation. Increased lipids and alcohol abuse. SURGICAL HISTORY: Includes his PEG and port placement. SOCIAL HISTORY: Longstanding tobacco user of about 35 pack years, and he has drunk at least 20 drink s per week, although he has not been drinking over the last few weeks according to the patient. FAMILY HISTORY: Unremarkable. REVIEW OF SYSTEMS: 10-point review of systems performed. Pertinent positives as per HPI, otherwise negative. PHYSICAL EXAM: VITAL SIGNS: Temperature is 37.1. Blood pressure is 101/66. Pulse is 97. GENERAL: He is awake and alert in no distress. HEENT: He does have postradiation changes on the left side of his neck, but the palpable mass is resolved. Oral mucosa is actually healing well, and I do not s ee the mass in his left tonsil at this time. LUNGS: Clear. CARDIAC: Regular. ABDOMEN: Soft. I did not examine the perianal area today. NEUROLOGICAL: He is grossly intact. SKIN: He has a heali ng acneiform rash over his face. LABORATORY DATA: When he arrived, white count was 11,000, hemoglobin 14.2, platelet count 221,000. White count today is 3300, ANC was 2400. Hemoglobin was 9.9, platelet count 71,000. Chemistries: A lbumin is a little low 2.3, but his other chemistries are unremarkable. Gram stain shows E coli, hap pens to be resistant to Levaquin. Abdominal CT showed perianal abscess including gas. Partially withdrawn gastrotomy tube balloon supe rficial to the rectus muscle. He did have that recently replaced, some evidence of cirrhosis and por bronwyn venous hypertension and splenomegaly, but the portal vein was patent. IMPRESSION: 1. 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 2. 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 3. Alcohol abuse. 4. Perianal abscess. PLAN: He seems to be recovering well from the infection. Further treatment followup will be per Inf ectious Disease. As for the cancer, I do not anticipate his blood counts to change any further with the recent cetuximab. It does not cause cytopenias. It can cause a skin rash and that is already st arting to heal. It can also cause low magnesium, and he was 1.1 when he came in and that is fairly t ypical. It will slowly improve as well. He is still having some trouble swallowing. He is to villa nue the tube feedings until he is able to eat normally. He has an appointment with me on , benedicto mullins he is to keep. /[id number]/MODL
--- NOTE | 2017-09-25 16:35 | ASMTCMCOM ---
CM Note CM Note Notes: 62yr old male admitted for perianal abscess/ severe sepsis, ETOH W/D. He has a Hx of tonsillar CA and recently completed chemo and radiation tx's. He also has a Hx of HTN HLD and he is a smoker. Needs feeding tube to be replaced, on IV ABX. Lives by himself. CM to follow for discharge needs. Date Signed: 09/25/2017 04:35 PM Electronically Signed By:Aydee Isbell LCSW
[2017-09-25] MEDS: AMOXICILLIN/CLAVULANATE POT 875/125 MG TAB PO SCH (20:41)
[2017-09-25] MEDS: oxyCODONE IR 5 MG TAB PO PRN (20:42)
[2017-09-25] MEDS ORDERED: POTASSIUM CL 10 MEQ TAB PO ONE (21:16)
[2017-09-26] MEDS: NS W/ 20 KCl/L 1,000 ML IV SCH (06:03)
[2017-09-26 06:28] LABS: PLATELET COUNT 77 10^3/uL (150-400)
[2017-09-26] MEDS ORDERED: MAGNESIUM SULF 2 GM/WATER 50 ML IV ONE (07:18)
[2017-09-26] MEDS ORDERED: POTASSIUM CL 10 MEQ TAB PO ONE (07:19)
[2017-09-26] MEDS: PANTOPRAZOLE SODIUM 40 MG VIAL IVP SCH (08:31)
[2017-09-26] MEDS: ENOXAPARIN 40 MG/0.4 ML SYR SC SCH (08:31)
[2017-09-26] MEDS: CLOTRIMAZOLE 1% 15 GM CRTUBE TP SCH (08:32)
[2017-09-26] MEDS: AMOXICILLIN/CLAVULANATE POT 875/125 MG TAB PO SCH (08:32)
[2017-09-26] MEDS: THIAMINE HCL 500 MG in NS 100 ML IV SCH (10:03)
--- NOTE | 2017-09-26 13:26 | HOSPPROG ---
Hospitalist Progress Note Assessment/Plan: #Sunita-rectal abscess: s/p I&D 09/23. E coli on culture. Change to Augmentin; Day 07/09 #Tonsillar CA: recent chemo, XRT. Would not expect neutropenia with this chemo #Dislodged feeding tube: IR repositioned today #Severe sepsis: resolved #Etoh w/d: min CIWA needs #Compensated cirrhosis: seen on CT. Need alcohol cessation #Hypokalemia/hypomagnesium: repleting. Chemo can cause low Mg #Deconditioning: PT to evaluate today #Diet: TFs #Disp: cont IV abx, awaiting cultures, CIWA. Likely DC in next 1-2 days Subjective: denies rectal pain Objective: Vital Signs Temp Pulse Resp BP Pulse Ox 36.8 C 93 16 123/80 H 96 09/26/17 07:22 09/26/17 07:22 09/26/17 07:22 09/26/17 07:22 09/26/17 07:22 Microbiology 09/23/17 15:22 Gram Stain - Final Buttock - Eswab Laboratory Results 09/26/17 06:07 09/26/17 06:07 09/25/17 09/26/17 09/27/17 05:59 05:59 05:59 Intake Total 1490 1682 Output Total 350 1850 450 Balance 1140 -168 -450 PT 14.9 SEC (12.0-15.0) 09/23/17 11:00 INR 1.15 (0.83-1.16) 09/23/17 11:00 - Time Spent With Patient Time Spent with Patient: greater than 25 minutes Time Spent with Patient: Greater than 25 minutes spent on this patients care, greater than 50% of time spent counseling, educating, and coordinating care regarding the above mentioned plan. - Physical Exam Constitutional: no apparent distress Eyes: PERRL Ears, Nose, Mouth, Throat: moist mucous membranes Cardiovascular: regular rate and rhythym Respiratory: no respiratory distress Gastrointestinal: normoactive bowel sounds Genitourinary: other (edmond in perineum) Neurologic: AAOx3 Psychiatric: interacting appropriately ICD10 Worksheet Patient Problems: Problems Problem Status Onset Perianal abscess Acute Severe sepsis Acute
[2017-09-26 15:01] VITALS: BP 141/90
--- NOTE | 2017-09-26 15:49 | GDS ---
[f rep st] DISCHARGE SUMMARY DISCHARGE DIAGNOSES: 1. Perirectal abscess status post incision and drainage, Escherichia coli culture. 2. Stage IV tonsillar carcinoma. 3. Dislodged feeding tube. 4. Severe sepsis. 5. Alcohol withdrawal. 6. Compensated cirrhosis. 7. Hypokalemia/hypomagnesium. 8. Leukopenia/anemia/thrombocytopenia. PROCEDURES: I and D of perirectal abscess. HISTORY OF PRESENT ILLNESS: A 62-year-old male with stage ESSIE squamous cell carcinoma of tonsil with PEG tube who presented with perirectal abscess. Recently finished chemotherapy and radiation treatment for his malignancy. HOSPITAL COURSE BY PROBLEM: 1. Severe sepsis: due to leticia-rectal abscess. This has resolved with drainage , antibiotics. 2. Perirectal abscess: I&D done by Dr. Thurman on 09/24/[address] at [place]. E coli on culture. Rx for Augmentin for a total of 7 days. Follow up with Surgery next week to remove the drain. 4. Leukopenia/anemia/thrombocytopenia: from chemotherapy, not neutropenic. Appt with Dr. Rosario this Tuesday. 5. Stage IV tonsillar carcinoma, recently completed chemotherapy, radiation, continuing tube feeds until tolerating a full diet. 6. Alcohol withdrawal: minimal benzos needed. Educated on cessation. 7. Malpositioned feeding tube. repositioned by Dr. Hawthorne. Now working without issue. 8. Compensated cirrhosis: This was seen on CT secondary to alcohol. 9. Hypokalemia/hypomagnesium: Chemotherapy can contribute to low magnesium. This has been repleted here. DISPOSITION: Patient is stable for discharge home with his brother. NEW MEDICATIONS: Augmentin to complete 7 days' course. FOLLOWUP: 1. Dr. Rosario, Tuesday, September 28. 2. Dr. Thurman next week for drain removal. PHYSICAL EXAMINATION: VITAL SIGNS: Today, temperature 36.9, blood pressure 140 /90, heart rate 90s, respirations 16, 98% on room air. GENERAL: He is well appearing, sitting up in bed in no acute distress. HEENT: PERRLA. Moist mucous membranes. CV: Regular rate and rhythm. LUNGS: Clear. ABDOMEN: Soft , nontender. : Hermon in perineum. No fluctuance. PSYCHIATRIC: Alert and oriented x3. Flat affect. Time spent on discharge greater than 30 minutes coordinating followup, discussing case with Dr. Thurman. /[id number]/MODL ANASTACIO
[2017-09-26] MEDS ORDERED: THIAMINE HCL 100 MG TAB PO SCH (15:51)
--- NOTE | 2017-09-26 15:54 | ASDISCHSUM ---
Discharge Information Plan Status:Home with No Needs Medically Cleared to Leave:09/26/2017 Discharge Date:09/26/2017 CM D/C Disposition:Home, Routine, Self-Care ADT D/C Disposition:Home, Routine, Self-Care Projected Discharge Date:09/26/2017 12:00 AM Transportation at D/C:Family Discharge Delay Reason: Follow-Up Date:09/26/2017 12:00 AM Discharge Slot:2 - 12:01 pm - 18:00 pm Final Diagnosis:Perianal abscess/Severe sepsis Placement Information Patient Contact Information Contact Name:MALLORIE Relationship: Address: City: [facility] Phone: [facility] Code: Email: Financial Information Financial Class:Medicaid Primary Plan Desc:MEDICAID [facility] [place] Primary Plan Number:[id number] Secondary Plan Desc: Secondary Plan Number: Assessment Information [facility] CM Progress Note CM Note CM Note Notes: 62yr old male admitted for perianal abscess/ severe sepsis, ETOH W/D. He has a Hx of tonsillar CA and recently completed chemo and radiation tx's. He also has a Hx of HTN HLD and he is a smoker. Needs feeding tube to be replaced, on IV ABX. Lives by himself. CM to follow for discharge needs. Date Signed: 09/25/2017 04:35 PM Electronically Signed By:Aydee Ibsell LCSW Case Management Discharge Plan Note Case Management Discharge Discharge Order Complete? Answers: Yes Patient to Obtain Answers: Independently Medications Transportation Arranged Answers: Family/Friends Family Notified Answers: Yes Notes: Lj scott Discharge Comments Notes: Patient is d/c'ing home today with no needs per physical therapy. Patient's brother Lj will transport him home. Date Signed: 09/26/2017 03:52 PM Electronically Signed By:Vanesa Jones LCSW Intervention Information
--- NOTE | 2017-09-26 16:01 | SOAPPROG ---
SOAP Progress Note Assessment/Plan: Assessment: 62yo M s/p I&D of perineal abscess - VSS, HDs - pain controlled - site has minimal residual erythema, minimal SS drainage - G tube changed yesterday - ok with home, RTC next week for edmond removal. Plan: 09/24/17 09:04 09/26/17 16:00 Subjective: feels well, ready for home Objective: Vital Signs Temp Pulse Resp BP Pulse Ox 36.9 C 102 H 16 141/90 H 98 09/26/17 14:57 09/26/17 14:57 09/26/17 14:57 09/26/17 14:57 09/26/17 14:57 Microbiology 09/23/17 15:22 Gram Stain - Final Buttock - Eswab Laboratory Results 09/26/17 06:07 09/26/17 06:07 09/25/17 09/26/17 09/27/17 05:59 05:59 05:59 Intake Total 1490 1682 Output Total 350 1850 450 Balance 1140 -168 -450 PT 14.9 SEC (12.0-15.0) 09/23/17 11:00 INR 1.15 (0.83-1.16) 09/23/17 11:00 ICD10 Worksheet Patient Problems: Problems Problem Status Onset Perianal abscess Acute Severe sepsis Acute
== END 2017-09-26 16:22 | disposition home or self-care (01) | DRG 710 ==
LOC: FSGY 14:18 → F2N 14:28 → F3E 09-24 16:25
PROVIDERS: ADMIT Surgery; ATTEND Internal Medicine
DX: A41.51 Sepsis due to Escherichia coli [E. coli] (principal); R65.20 Severe sepsis without septic shock; K61.0 Anal abscess; T85.528A Displacement of other gastrointestinal prosthetic devices, implants and grafts, initial encounter; C09.8 Malignant neoplasm of overlapping sites of tonsil; K70.30 Alcoholic cirrhosis of liver without ascites; F10.230 Alcohol dependence with withdrawal, uncomplicated; D64.81 Anemia due to antineoplastic chemotherapy; D70.1 Agranulocytosis secondary to cancer chemotherapy; I10 Essential (primary) hypertension; K76.6 Portal hypertension; R16.1 Splenomegaly, not elsewhere classified; E87.6 Hypokalemia; F17.210 Nicotine dependence, cigarettes, uncomplicated; D69.59 Other secondary thrombocytopenia; Z92.3 Personal history of irradiation
CPT/HCPCS: 83605-PO; 96374; 97161-GP; C1769; J0330; J0696; J1100; J1170; J1642; J1650; J2060; J2250; J2405; J2543; J2704; J3010; J3411; J3475; J3480; Q9967